=== PATIENT | male | born 1995 | race Caucasian/White ===

== ENCOUNTER 2017-04-08 09:44 | Emergency (ER) | payer BC ==
[~2017-04-08] VITALS: Ht 185.4 cm; Wt 86.2 kg
[2017-04-08 09:56] VITALS: BP 137/60
[2017-04-08] MEDS ORDERED: IBUPROFEN 600 MG TABLET PO ONE ×2 (10:00→10:13)
[2017-04-08] MEDS ORDERED: TDAP [DIPH/PERTUSSIS/TET] 0.5 ML VIAL IM ONE ×2 (10:00→10:13)
== END 2017-04-08 11:16 | disposition home or self-care (01) ==
LOC: ER 09:49
DX: S69.92XA Unspecified injury of left wrist, hand and finger(s), initial encounter (principal); X58.XXXA Exposure to other specified factors, initial encounter; Y93.89 Activity, other specified; Y92.89 Other specified places as the place of occurrence of the external cause; Y99.8 Other external cause status
CPT/HCPCS: 29130; 73140; 90471; 90715; 99284; A4606 ×2; A6402; Z7610